=== PATIENT | male | born 1995 | race Caucasian/White ===

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

== ENCOUNTER 2021-06-18 22:37 | Emergency (ER) | payer OTHER ==
[2021-06-18] MEDS ORDERED: Ketorolac 15 MG/ML SDV IM STA (22:54)
[2021-06-18] MEDS ORDERED: traMADol 50 MG Tab PO ONE (22:54)
[2021-06-18] MEDS ORDERED: Ketorolac 30 MG/ML SDV ONE (22:59)
--- NOTE | 2021-06-18 23:51 | CR ---
INDICATION: Elbow pain following fall TECHNIQUE: Elbow radiograph 4 views left COMPARISON: None FINDINGS: Bone: There is a nondisplaced fracture within the radial head. Joint: The elbow joint is unremarkable. A moderate joint effusion is present, likely a hemarthrosis. Soft tissue: Unremarkable. No radiopaque foreign bodies are seen. IMPRESSIONS: 1. There is a nondisplaced fracture within the radial head. 2. A moderate joint effusion is present, likely a hemarthrosis. Dictated by Placido Curtis MD @ 06/18/2021 11:50:18 PM Dictated by: Placido Curtis MD @ 06/18/2021 23:50:22 (Electronically Signed)
--- NOTE | 2021-06-19 00:24 | EDM.PDOC ---
ED HPI GENERAL MEDICAL PROBLEM - General Chief Complaint: Upper Extremity Injury/Pain Stated Complaint: ELBOW PAIN FROM FALL Time Seen by Provider: 06/18/21 22:49 - History of Present Illness INITIAL COMMENTS - FREE TEXT/NARRATIVE: HISTORY AND PHYSICAL: History of present illness: This is a 25-year-old gentleman who presents ER today secondary to pain to his left elbow that occurred at approximately 10 PM tonight when he slipped and fell. Patient denies any head injury or head trauma. Patient has any pain to any other extremity. Patient has some discomfort to his left scapula which she describes as feel like his muscles are tightening up in that area. He reports no direct trauma to his clavicle or shoulder though. Review of systems: As per history of present illness and below otherwise all systems reviewed and n egative. Past medical history: As per history of present illness and as reviewed below otherwise noncontributory. Surgical history: As per history of present illness and as reviewed below otherwise noncontributory. Social history: No reported history of drug abuse. Family history: As per history of present illness and as reviewed below otherwise noncontributory. Physical exam: This patient was seen and evaluated during the 2019 SARS-CoV-2 novel coronavirus pandemic period. Community viral transmission is ongoing at time of this encounter and the emergency department is operating under pandemic response procedures. Constitutional: Patient is oriented to person, place, and time. Appears well- developed and well-nourished. No distress. HEENT: Moist mucous membranes Head: Normocephalic and atraumatic Eyes: Right eye exhibits no discharge. Left eye exhibits no discharge. No scleral icterus Neck: Normal range of motion. No tracheal deviation present. Cardiovascular: Normal rate and regular rhythm. Pulmonary: Effort normal, no respiratory distress. Abdominal: No distention Musculoskeletal: Normal range of motion Neurologic: Alert and oriented to person, place and time. Skin: [place], warm and dry. Psychiatric: Normal mood and affect. Behavior is normal. Judgment and thought content normal. Nursing note and vital signs have been reviewed Patient has no C-spine T-spine or L-spine tenderness to palpation. Patient has no left upper or right upper quadrant tenderness to palpation. Patient has no crepitus to palpation to the anterior chest wall. Patient is neurologically intact. Patient does not present with any signs or or symptoms that would be consistent with acute intracranial, intra-abdominal, intrathoracic, or long bone injury. All long bones have been palpated and range of motion been performed and there is no evidence of any acute pathology. Patient's ER physical exam is significant for tenderness palpation to his left elbow with soft tissue swelling and hematoma noted to the proximal aspect of his radius. Diagnostics: X-ray of the left elbow reveals a nondisplaced radial head fracture. Therapeutics: Ultram/Toradol IM Assessment and plan: 25-year-old gentleman who presents ER today secondary to injury to his left elbow with an x-ray revealing a nondisplaced radial head fracture. Patient be placed in a posterior splint as well as a sling and will be referred to orthopedics for definitive management. Patient be discharged home with a prescription for ibuprofen and Ultram. Splint note: Posterior splint applied by Dr. Van. Post splint placement evaluation reveals good capillary refill, neurovascular intact. Reassessment at the time of disposition demonstrates that the patient is in no acute distress. The patient has remained stable throughout the entire ED visit and is without objective evidence for acute process requiring urgent intervention or hospitalization. The patient is stable for discharge, counseling is provided as documented above, discussed symptomatic treatment and specific conditions for return. I have spoken with the patient/caregiver and discussed todays findings, in addition to providing specific details for the plan of care. Questions are answered and there is agreement with the plan. My DME note: Posterior splint and arm sling applied secondary to fracture to the proximal radial head with minimal displacement. This will need to be in place for a minimum of 6 weeks or until reevaluated by orthopedics. Splint will be applied in order to assist with bone healing. Definitive disposition and diagnosis as appropriate pending reevaluation and review of above. Left Elbow Pain Score (Numeric/FACES): 9 - Related Data Allergies Allergy/AdvReac Type Severity Reaction Status Date / Time No Known Allergies Allergy Verified 06/18/21 22:43 Home Meds: Home Meds Ibuprofen 600 mg PO Q6HR PRN #30 tablet 06/19/21 [Rx] traMADol [Ultram] 50 mg PO Q6H PRN #12 tab 06/19/21 [Rx] Past Medical History - Past Health History Medical/Surgical History: Denies Medical/Surgical History Social & Family History - Tobacco Use Tobacco Use Status *Q: Never Tobacco User - Recreational Drug Use Recreational Drug Use: No Review of Systems - Review of Systems Review Of Systems: See Below ED EXAM, GENERAL - Physical Exam Exam: See Below Course - Vital Signs Last Recorded V/S: Last Vital Signs Temp 96.8 F L 06/18/21 22:43 Pulse 81 06/18/21 22:43 Resp 17 06/18/21 22:43 BP 145/85 H 06/18/21 22:43 Pulse Ox 99 06/18/21 22:43 - Orders/Labs/Meds Orders: Active Orders 24 hr Category Date Time Status DME for Discharge [COMM] Stat Oth 06/18/21 22:54 Ordered DME for Discharge [COMM] Stat Oth 06/18/21 22:55 Ordered Meds: Medications Discontinued Medications Generic Name Dose Route Start Last Admin Trade Name Eusebio PRN Reason Stop Dose Admin Ketorolac Tromethamine 30 mg 06/18/21 22:54 06/18/21 23:06 Ketorolac 15 Mg/Ml Sdv IM 06/18/21 22:55 Not Given Q6H STA Ketorolac Tromethamine Confirm 06/18/21 22:59 06/18/21 23:03 Ketorolac 30 Mg/Ml Sdv Administered 06/18/21 23:00 30 mg Dose Administration 30 mg .ROUTE .STK-MED ONE Tramadol HCl 50 mg 06/18/21 22:54 06/18/21 23:02 Tramadol 50 Mg Tab PO 06/18/21 22:55 50 mg ONETIME ONE Administration Departure - Departure Time of Disposition: 00:24 Disposition: Home, Self-Care 01 Condition: Good Clinical Impression: Fracture of radius - Discharge Information Instructions: How to use a Sling, [id number], Cast or Splint Care, Adult, [id number], Radial Head Fracture, [id number] Referrals: PCP,None [Primary Care Provider] - Additional Instructions: You were seen and evaluated in the ER today secondary to an injury to your left elbow. The x-ray reveals a have a radial head fracture. You have been placed in a posterior splint and an arm sling until you are able to see the front office specialist. You can take ibuprofen and acetaminophen as needed for pain. You will also be given a prescription for Ultram to help you with your pain and discomfort until you are able to follow-up with the orthopedic surgeon. You should apply ice to the area for the next 48 hours. Keep it elevated. Avoid any use or weight to your left arm. Please call the orthopedic clinic to make an appointment within the week. Please make sure you let them know that you were seen and evaluated in the ER. [facility] [address] [place] [address], [address] [place] [address] The following information is given to patients seen in the emergency department who are being discharged to home. This information is to outline your options for follow-up care. We provide all patients seen in our emergency department with a follow-up referral. The need for follow-up, as well as the timing and circumstances, are variable depending upon the specifics of your emergency department visit. If you don't have a primary care physician on staff, we will provide you with a referral. We always advise you to contact your personal physician following an emergency department visit to inform them of the circumstance of the visit and for follow-up with them and/or the need for any referrals to a consulting specialist. The emergency department will also refer you to a specialist when appropriate. This referral assures that you have the opportunity for follow-up care with a specialist. All of these measure are taken in an effort to provide you with optimal care, which includes your follow-up. Under all circumstances we always encourage you to contact your private physician who remains a resource for coordinating your care. When calling for follow-up care, please make the office aware that this follow-up is from your recent emergency room visit. If for any reason you are refused follow-up, please contact the [facility] Emergency Department at and asked to speak to the emergency department charge nurse. [facility] [address] [place] [address] [facility] [address] [place] [address] Sepsis Event Note (ED) - Evaluation Sepsis Screening Result: No Definite Risk - Focused Exam Vital Signs: Vital Signs Temp Pulse Resp BP Pulse Ox 06/18/21 22:43 96.8 F L 81 17 145/85 H 99 - My Orders Last 24 Hours: My Active Orders 06/18/21 22:54 DME for Discharge [COMM] Stat 06/18/21 22:55 DME for Discharge [COMM] Stat - Assessment/Plan Last 24 Hours: My Active Orders 06/18/21 22:54 DME for Discharge [COMM] Stat 06/18/21 22:55 DME for Discharge [COMM] Stat
== END 2021-06-19 00:41 | disposition home or self-care (01) ==
LOC: MW.ED 22:37
DX: S52.125A Nondisplaced fracture of head of left radius, initial encounter for closed fracture (principal); W01.0XXA Fall on same level from slipping, tripping and stumbling without subsequent striking against object, initial encounter
CPT/HCPCS: 29105; 73080; 96372; 99283; A9270; J1885